=== PATIENT | male | born 1940 | race Caucasian/White ===

== ENCOUNTER 2017-12-10 21:54 | Inpatient (IN) ==
[2017-12-10] MEDS ORDERED: metroNIDAZOLE INJ 500 MG in PREMIX 1 EACH IV STA (22:17)
[2017-12-10] MEDS ORDERED: METOCLOPRAMIDE 10 MG/2 ML VIAL IV STA (22:17)
[2017-12-10] MEDS ORDERED: cefTRIAXone 1,000 MG in SODIUM CHLORIDE 0.9% 100 ML IV STA (22:17)
[2017-12-10] MEDS ORDERED: PANTOPRAZOLE 40 MG VIAL IV STA (22:17)
[2017-12-10] MEDS ORDERED: ONDANSETRON 4 MG/2 ML VIAL IV STA (22:17)
[2017-12-10 22:51] LABS: Basophils # 0.1 10*3/uL (0.0-0.2); Basophils % 0.3 % (0.0-0.8); Hematocrit 39.6 VOL% (42.0-52.0); Immature Granulocytes % 1.1 %; Immature Granulocytes Absolute 0.23 #; Lymphocytes # 0.3 10*3/uL (1.4-4.0); Lymphocytes % 1.7 % (21.2-54.2); Mean Corpuscular HGB Conc 32.8 GM/DL (32-36); Mean Corpuscular Hemoglobin 31 PG (27-34); Mean Corpuscular Volume 94.1 FL (87-102); Mean Platelet Volume 10.4 FL (9.6-12.0); Monocytes # 0.5 10*3/uL (0.11-0.8); Monocytes % 2.6 % (1.7-12.7); Neutrophils # 19.1 10*3/uL (1.4-7.4); Neutrophils % 94.3 % (38.7-73.9); Platelet Count 123 T/CUMM (130-400); Red Blood Count 4.21 MC/CUMM (3.8-5.5); Red Cell Distribution Width 13.7 % (9.3-17.3); White Blood Count 20.2 T/CUMM (4-12)
[2017-12-10 23:12] LABS: Alanine Aminotransferase 71 U/L (16-61); Albumin 2.4 G/DL (3.4-5.0); Alkaline Phosphatase 156 U/L (45-117); Amylase 17 U/L (25-115); Aspartate Amino Transferase 102 U/L (0-37); Blood Urea Nitrogen 47 MG/DL (7-18); Calcium 8.1 MG/DL (8.5-10.1); Glucose 133 MG/DL (74-106); Osmolality,Calculated 296.1 MOS/KG (273-304); Potassium 3.8 MMOL/L (3.5-5.1); Sodium 142 MMOL/L (136-145); Total Protein 6.1 G/DL (6.4-8.3)
[2017-12-10 23:15] LABS: Troponin I 0.488 NG/ML (0.00-0.045)
[2017-12-10 23:26] LABS: Lactic Acid 3.3 MMOL/L (0.4-2.0)
[2017-12-10] MEDS ORDERED: SODIUM CHLORIDE 0.9% 1,000 ML IV STA (23:29)
[2017-12-10 23:40] LABS: Apearance,Urine CLOUDY (Clear); Blood, Urine Small mg/dL (Negative); Glucose,Urine (UA) Negative (Negative); Granular Casts,Urine 7 /LPF (0-1); Hyaline Casts,Urine 7 /LPF (0-3); Ketones,Urine 5 mg/dL (Negative); Mucus,Urine Occasional /LPF (Occasional); Nitrite,Urine Negative (Negative); Protein,Urine >=500 MG/DL; RBC,Urine 10 /HPF (0-4); Squamous Epithelial Cell,Urine Occasional /HPF (0-10); Urine Color Amber (Yellow); Urine Specific Gravity 1.019 (1.001-1.035); WBC,Urine 8 /HPF (0-6)
[2017-12-10 23:41] LABS: Bilirubin,Urine Small mg/dL (Negative)
[2017-12-11] MEDS ORDERED: SODIUM CHLORIDE 0.9% 1,000 ML IV STA (00:42)
[2017-12-11 00:51] LABS: Band Neutrophils 18 % (0-10); Lymphocytes 3 % (20-55); Metamyelocytes 7 %; Myelocytes 2 %; Segmented Neutrophils 68 % (50-85); Total Cells Counted 100
[2017-12-11 01:16] LABS: Ovalocytes 1+; Platelet Estimate Normal
[2017-12-11] MEDS ORDERED: NOREPINEPHRINE 8 MG in SODIUM CHLORIDE 0.9% 242 ML IV PRN ×2 (04:07→04:53)
[2017-12-11] MEDS ORDERED: SODIUM CHLORIDE 0.9% 100 ML IV ONE (05:06)
[2017-12-11] MEDS ORDERED: MEROPENEM 1,000 MG VIAL IV ONE (05:06)
[2017-12-11] MEDS ORDERED: ENOXAPARIN 80 MG/0.8 ML SYRINGE SUBCUT ONE (05:06)
[2017-12-11] MEDS: ENOXAPARIN 30 MG/0.3 ML SYRINGE SUBCUT SCH (05:20)
[2017-12-11 05:30] LABS: Basophils # 0.1 10*3/uL (0.0-0.2); Basophils % 0.4 % (0.0-0.8); Hematocrit 37.3 VOL% (42.0-52.0); Hemoglobin 12.4 GM/DL (14.0-18.0); Immature Granulocytes % 0.9 %; Immature Granulocytes Absolute 0.18 #; Lymphocytes # 0.6 10*3/uL (1.4-4.0); Lymphocytes % 2.7 % (21.2-54.2); Mean Corpuscular HGB Conc 33.2 GM/DL (32-36); Mean Corpuscular Hemoglobin 32 PG (27-34); Mean Corpuscular Volume 94.7 FL (87-102); Mean Platelet Volume 10.7 FL (9.6-12.0); Monocytes # 0.8 10*3/uL (0.11-0.8); Monocytes % 3.6 % (1.7-12.7); Neutrophils # 19.5 10*3/uL (1.4-7.4); Neutrophils % 92.4 % (38.7-73.9); Platelet Count 109 T/CUMM (130-400); Red Blood Count 3.94 MC/CUMM (3.8-5.5); Red Cell Distribution Width 13.6 % (9.3-17.3); White Blood Count 21.1 T/CUMM (4-12)
[2017-12-11] MEDS: MEROPENEM 1,000 MG in SYRINGE 1 EACH IV SCH ×3 (05:45→20:24)
[2017-12-11] MEDS: SODIUM CHLORIDE 0.9% 1,000 ML IV SCH ×2 (05:45→16:53)
[2017-12-11 05:49] LABS: Band Neutrophils 12 % (0-10); Hypochromasia 1+; Lymphocytes 2 % (20-55); Metamyelocytes 3 %; Microcytosis 1+; Ovalocytes Slight; Segmented Neutrophils 75 % (50-85); Total Cells Counted 100
[2017-12-11 05:50] LABS: Platelet Estimate Adequate
[2017-12-11 06:00] LABS: Albumin 2.3 G/DL (3.4-5.0); Calcium 7.4 MG/DL (8.5-10.1); Osmolality,Calculated 296.1 MOS/KG (273-304); Potassium 4.2 MMOL/L (3.5-5.1); Total Protein 5.1 G/DL (6.4-8.3)
[2017-12-11 09:01] LABS: INR 1.2; PT Patient Result 12.2 SECS
[2017-12-11] MEDS ORDERED: fentaNYL 100 MCG/2 ML VIAL ONE (09:15)
[2017-12-11] MEDS ORDERED: MIDAZOLAM 2 MG/2 ML VIAL ONE (09:15)
[2017-12-11] MEDS ORDERED: ONDANSETRON 4 MG/2 ML VIAL ONE (09:16)
[2017-12-11] MEDS ORDERED: ONDANSETRON 4 MG/2 ML VIAL IV ONE (09:26)
[2017-12-11] MEDS ORDERED: fentaNYL 100 MCG/2 ML VIAL IV ONE (09:26)
[2017-12-11] MEDS: metroNIDAZOLE INJ 500 MG in PREMIX 1 EACH IV SCH ×3 (10:36→23:21)
[2017-12-11] MEDS: MORPHINE 4 MG/1 ML VIAL IV PRN ×2 (15:14→23:21)
[2017-12-12 04:28] LABS: Basophils % 0.2 % (0.0-0.8); Eosinophils % 0.2 % (0.00-10.9); Hematocrit 35.2 VOL% (42.0-52.0); Hemoglobin 11.6 GM/DL (14.0-18.0); Immature Granulocytes % 0.9 %; Lymphocytes # 0.5 10*3/uL (1.4-4.0); Lymphocytes % 4.3 % (21.2-54.2); Mean Corpuscular Hemoglobin 31 PG (27-34); Mean Corpuscular Volume 95.4 FL (87-102); Mean Platelet Volume 11.1 FL (9.6-12.0); Monocytes # 0.4 10*3/uL (0.11-0.8); Monocytes % 3.5 % (1.7-12.7); Neutrophils # 10.2 10*3/uL (1.4-7.4); Neutrophils % 90.9 % (38.7-73.9); Platelet Count 106 T/CUMM (130-400); Red Blood Count 3.69 MC/CUMM (3.8-5.5); Red Cell Distribution Width 13.8 % (9.3-17.3); White Blood Count 11.2 T/CUMM (4-12)
[2017-12-12 05:02] LABS: Bilirubin,Total 0.8 MG/DL (0.2-1.0); Calcium 7.9 MG/DL (8.5-10.1); Potassium 4.1 MMOL/L (3.5-5.1); Total Protein 5.4 G/DL (6.4-8.3)
[2017-12-12] MEDS: SODIUM CHLORIDE 0.9% 1,000 ML IV SCH ×2 (05:06→14:25)
[2017-12-12] MEDS: MEROPENEM 1,000 MG in SYRINGE 1 EACH IV SCH ×3 (05:14→21:22)
[2017-12-12] MEDS: ENOXAPARIN 30 MG/0.3 ML SYRINGE SUBCUT SCH (05:14)
[2017-12-12 05:30] LABS: Band Neutrophils 6 % (0-10); Lymphocytes 2 % (20-55); Segmented Neutrophils 85 % (50-85); Total Cells Counted 100
[2017-12-12 05:31] LABS: Burr Cells Few; Hypochromasia Slight; Microcytosis Slight
[2017-12-12 05:32] LABS: Ovalocytes Slight; Platelet Estimate Adequate
[2017-12-12] MEDS: metroNIDAZOLE INJ 500 MG in PREMIX 1 EACH IV SCH ×2 (08:39→17:35)
[2017-12-12] MEDS: MORPHINE 4 MG/1 ML VIAL IV PRN ×2 (09:01→21:35)
[2017-12-12] MEDS: ASPIRIN EC 325 MG TABLET PO SCH (13:41)
[2017-12-12] MEDS: ALLOPURINOL 300 MG TABLET PO SCH (13:42)
[2017-12-12] MEDS: PANTOPRAZOLE 40 MG TABLET PO SCH (21:23)
[2017-12-12] MEDS: ONDANSETRON 4 MG/2 ML VIAL IV PRN (21:36)
[2017-12-13] MEDS: metroNIDAZOLE INJ 500 MG in PREMIX 1 EACH IV SCH ×3 (00:43→16:19)
[2017-12-13] MEDS: SODIUM CHLORIDE 0.9% 1,000 ML IV SCH ×2 (00:45→16:05)
[2017-12-13 03:17] LABS: Basophils % 0.3 % (0.0-0.8); Eosinophils # 0.4 10*3/uL (0.0-0.87); Eosinophils % 3.2 % (0.00-10.9); Hematocrit 36.9 VOL% (42.0-52.0); Hemoglobin 11.9 GM/DL (14.0-18.0); Immature Granulocytes % 0.5 %; Immature Granulocytes Absolute 0.05 #; Lymphocytes # 0.6 10*3/uL (1.4-4.0); Lymphocytes % 5.3 % (21.2-54.2); Mean Corpuscular HGB Conc 32.2 GM/DL (32-36); Mean Corpuscular Hemoglobin 31 PG (27-34); Mean Corpuscular Volume 95.3 FL (87-102); Monocytes # 0.4 10*3/uL (0.11-0.8); Monocytes % 3.9 % (1.7-12.7); Neutrophils # 9.4 10*3/uL (1.4-7.4); Neutrophils % 86.8 % (38.7-73.9); Platelet Count 115 T/CUMM (130-400); Red Blood Count 3.87 MC/CUMM (3.8-5.5); Red Cell Distribution Width 13.9 % (9.3-17.3); White Blood Count 10.8 T/CUMM (4-12)
[2017-12-13 03:58] LABS: Bilirubin,Total 0.9 MG/DL (0.2-1.0); Calcium 8.5 MG/DL (8.5-10.1); Osmolality,Calculated 308.8 MOS/KG (273-304); Potassium 3.9 MMOL/L (3.5-5.1); Total Protein 5.6 G/DL (6.4-8.3)
[2017-12-13 05:36] LABS: Band Neutrophils 5 % (0-10); Eosinophils 2 % (0-10); Lymphocytes 2 % (20-55); Segmented Neutrophils 88 % (50-85); Total Cells Counted 100
[2017-12-13 05:37] LABS: Burr Cells Slight; Microcytosis Slight
[2017-12-13 05:38] LABS: Platelet Estimate Adequate
[2017-12-13] MEDS: MEROPENEM 1,000 MG in SYRINGE 1 EACH IV SCH ×2 (06:23→16:06)
[2017-12-13] MEDS: ENOXAPARIN 30 MG/0.3 ML SYRINGE SUBCUT SCH (06:23)
[2017-12-13] MEDS: PANTOPRAZOLE 40 MG TABLET PO SCH ×2 (09:18→21:05)
[2017-12-13] MEDS: ASPIRIN EC 325 MG TABLET PO SCH (09:18)
[2017-12-13] MEDS: ALLOPURINOL 300 MG TABLET PO SCH (09:18)
[2017-12-13] MEDS ORDERED: ALBUTEROL/IPRATROPIUM 3 ML NEB RESP TX PRN (14:25)
[2017-12-13] MEDS ORDERED: ALBUTEROL/IPRATROPIUM 3 ML NEB RESP TX ONE (14:25)
[2017-12-13] MEDS ORDERED: FUROSEMIDE 40 MG/4 ML VIAL IV ONE (15:00)
[2017-12-13] MEDS ORDERED: AZTREONAM 1,000 MG in SODIUM CHLORIDE 0.9% 100 ML IV SCH (15:00)
[2017-12-13] MEDS ORDERED: LEVOFLOXACIN 750 MG TABLET PO ONE (15:30)
[2017-12-13] MEDS ORDERED: AZTREONAM 2,000 MG in SYRINGE 1 EACH IV ONE (16:00)
[2017-12-13] MEDS: AZTREONAM 1,000 MG in SYRINGE 1 EACH IV SCH (23:22)
[2017-12-14] MEDS: metroNIDAZOLE INJ 500 MG in PREMIX 1 EACH IV SCH ×3 (00:32→16:59)
[2017-12-14] MEDS: ENOXAPARIN 30 MG/0.3 ML SYRINGE SUBCUT SCH (05:55)
[2017-12-14 06:38] LABS: Basophils % 0.5 % (0.0-0.8); Eosinophils # 0.5 10*3/uL (0.0-0.87); Eosinophils % 6.6 % (0.00-10.9); Hemoglobin 12.5 GM/DL (14.0-18.0); Immature Granulocytes % 1.8 %; Immature Granulocytes Absolute 0.14 #; Lymphocytes # 0.7 10*3/uL (1.4-4.0); Lymphocytes % 8.2 % (21.2-54.2); Mean Corpuscular HGB Conc 32.9 GM/DL (32-36); Mean Corpuscular Hemoglobin 31 PG (27-34); Mean Corpuscular Volume 92.9 FL (87-102); Mean Platelet Volume 10.3 FL (9.6-12.0); Monocytes # 0.5 10*3/uL (0.11-0.8); Monocytes % 6.7 % (1.7-12.7); Neutrophils % 76.2 % (38.7-73.9); Platelet Count 104 T/CUMM (130-400); Red Blood Count 4.09 MC/CUMM (3.8-5.5); Red Cell Distribution Width 13.9 % (9.3-17.3); White Blood Count 7.9 T/CUMM (4-12)
[2017-12-14 06:58] LABS: Calcium 8.4 MG/DL (8.5-10.1); Osmolality,Calculated 311.7 MOS/KG (273-304); Potassium 3.9 MMOL/L (3.5-5.1)
[2017-12-14] MEDS: SODIUM CHLORIDE 0.9% 1,000 ML IV SCH (09:41)
[2017-12-14] MEDS: ALLOPURINOL 300 MG TABLET PO SCH (09:42)
[2017-12-14] MEDS: AZTREONAM 1,000 MG in SYRINGE 1 EACH IV SCH ×2 (09:42→16:58)
[2017-12-14] MEDS: PANTOPRAZOLE 40 MG TABLET PO SCH ×2 (09:42→21:08)
[2017-12-14] MEDS: ASPIRIN EC 325 MG TABLET PO SCH (09:43)
[2017-12-14] MEDS ORDERED: TUBERCULIN SKIN TEST 0.1 ML SYRINGE INTRADERM ONE (15:21)
[2017-12-14] MEDS: MORPHINE 4 MG/1 ML VIAL IV PRN ×2 (17:29→22:02)
[2017-12-14] MEDS: ONDANSETRON 4 MG/2 ML VIAL IV PRN (22:03)
[2017-12-15] MEDS: AZTREONAM 1,000 MG in SYRINGE 1 EACH IV SCH ×3 (01:21→16:22)
[2017-12-15] MEDS: metroNIDAZOLE INJ 500 MG in PREMIX 1 EACH IV SCH ×3 (01:22→16:41)
[2017-12-15 05:31] LABS: Basophils % 0.3 % (0.0-0.8); Eosinophils # 0.3 10*3/uL (0.0-0.87); Eosinophils % 4.1 % (0.00-10.9); Hematocrit 38.5 VOL% (42.0-52.0); Hemoglobin 12.8 GM/DL (14.0-18.0); Immature Granulocytes % 1.9 %; Immature Granulocytes Absolute 0.13 #; Lymphocytes % 13.7 % (21.2-54.2); Mean Corpuscular HGB Conc 33.2 GM/DL (32-36); Mean Corpuscular Hemoglobin 31 PG (27-34); Mean Corpuscular Volume 92.1 FL (87-102); Mean Platelet Volume 10.6 FL (9.6-12.0); Monocytes # 0.6 10*3/uL (0.11-0.8); Monocytes % 9.1 % (1.7-12.7); Neutrophils % 70.9 % (38.7-73.9); Platelet Count 140 T/CUMM (130-400); Red Blood Count 4.18 MC/CUMM (3.8-5.5); Red Cell Distribution Width 14.1 % (9.3-17.3)
[2017-12-15 05:35] LABS: Calcium 8.2 MG/DL (8.5-10.1); Osmolality,Calculated 315.4 MOS/KG (273-304); Potassium 3.8 MMOL/L (3.5-5.1)
[2017-12-15] MEDS: ENOXAPARIN 30 MG/0.3 ML SYRINGE SUBCUT SCH (07:51)
[2017-12-15] MEDS: SODIUM CHLORIDE 0.9% 1,000 ML IV SCH (09:19)
[2017-12-15] MEDS: ASPIRIN EC 325 MG TABLET PO SCH (09:21)
[2017-12-15] MEDS: ALLOPURINOL 300 MG TABLET PO SCH (09:21)
[2017-12-15] MEDS: PANTOPRAZOLE 40 MG TABLET PO SCH ×2 (09:21→21:33)
[2017-12-15] MEDS ORDERED: BISACODYL 10 MG SUPP RECTAL ONE (10:47)
[2017-12-15] MEDS: DEXTROSE 5% NACL 0.45% 1,000 ML IV SCH (14:34)
[2017-12-15] MEDS: LEVOFLOXACIN 500 MG TABLET PO SCH (16:21)
[2017-12-15] MEDS: MAGNESIUM HYDROXIDE SUSP 30 ML UDCUP PO PRN (21:32)
[2017-12-16] MEDS: DEXTROSE 5% NACL 0.45% 1,000 ML IV SCH ×2 (00:49→19:38)
[2017-12-16] MEDS: AZTREONAM 1,000 MG in SYRINGE 1 EACH IV SCH ×3 (01:11→17:41)
[2017-12-16] MEDS: metroNIDAZOLE INJ 500 MG in PREMIX 1 EACH IV SCH ×3 (01:15→17:41)
[2017-12-16] MEDS: MAGNESIUM HYDROXIDE SUSP 30 ML UDCUP PO PRN ×2 (06:28→10:47)
[2017-12-16 06:40] LABS: Calcium 8.2 MG/DL (8.5-10.1); Osmolality,Calculated 311.6 MOS/KG (273-304); Potassium 3.8 MMOL/L (3.5-5.1)
[2017-12-16] MEDS: ENOXAPARIN 30 MG/0.3 ML SYRINGE SUBCUT SCH (10:44)
[2017-12-16] MEDS: ALLOPURINOL 300 MG TABLET PO SCH (10:45)
[2017-12-16] MEDS: ASPIRIN EC 325 MG TABLET PO SCH (10:45)
[2017-12-16] MEDS: PANTOPRAZOLE 40 MG TABLET PO SCH ×2 (10:45→22:22)
[2017-12-16] MEDS: ALBUTEROL/IPRATROPIUM 3 ML NEB RESP TX SCH ×2 (14:11→19:59)
[2017-12-17] MEDS: metroNIDAZOLE INJ 500 MG in PREMIX 1 EACH IV SCH ×3 (03:15→15:59)
[2017-12-17] MEDS: AZTREONAM 1,000 MG in SYRINGE 1 EACH IV SCH ×3 (03:16→16:01)
[2017-12-17 06:22] LABS: Basophils % 0.4 % (0.0-0.8); Eosinophils # 0.3 10*3/uL (0.0-0.87); Eosinophils % 4.1 % (0.00-10.9); Hematocrit 37.6 VOL% (42.0-52.0); Hemoglobin 12.5 GM/DL (14.0-18.0); Immature Granulocytes % 1.3 %; Immature Granulocytes Absolute 0.11 #; Lymphocytes # 0.9 10*3/uL (1.4-4.0); Lymphocytes % 11.3 % (21.2-54.2); Mean Corpuscular HGB Conc 33.2 GM/DL (32-36); Mean Corpuscular Hemoglobin 31 PG (27-34); Mean Corpuscular Volume 91.9 FL (87-102); Mean Platelet Volume 10.2 FL (9.6-12.0); Monocytes # 0.5 10*3/uL (0.11-0.8); Monocytes % 6.2 % (1.7-12.7); Neutrophils # 6.3 10*3/uL (1.4-7.4); Neutrophils % 76.7 % (38.7-73.9); Platelet Count 213 T/CUMM (130-400); Red Blood Count 4.09 MC/CUMM (3.8-5.5); Red Cell Distribution Width 13.4 % (9.3-17.3); White Blood Count 8.3 T/CUMM (4-12)
[2017-12-17 06:28] LABS: Calcium 8.1 MG/DL (8.5-10.1); Calcium 8.6 MG/DL (8.5-10.1); Osmolality,Calculated 304.6 MOS/KG (273-304); Osmolality,Calculated 305.6 MOS/KG (273-304); Potassium 3.9 MMOL/L (3.5-5.1)
[2017-12-17] MEDS: ALBUTEROL/IPRATROPIUM 3 ML NEB RESP TX SCH ×3 (07:40→19:30)
[2017-12-17] MEDS: ENOXAPARIN 30 MG/0.3 ML SYRINGE SUBCUT SCH (09:18)
[2017-12-17] MEDS: PANTOPRAZOLE 40 MG TABLET PO SCH ×2 (09:18→21:07)
[2017-12-17] MEDS: ASPIRIN EC 325 MG TABLET PO SCH (09:18)
[2017-12-17] MEDS: ALLOPURINOL 300 MG TABLET PO SCH (09:18)
[2017-12-17 09:21] LABS: Folate 13.2 NG/ML (5.4-24.0)
[2017-12-17] MEDS: LEVOFLOXACIN 500 MG TABLET PO SCH (16:01)
[2017-12-17] MEDS: DEXTROSE 5% NACL 0.45% 1,000 ML IV SCH ×2 (17:33→18:03)
[2017-12-18] MEDS: metroNIDAZOLE INJ 500 MG in PREMIX 1 EACH IV SCH ×2 (01:53→08:41)
[2017-12-18] MEDS: AZTREONAM 1,000 MG in SYRINGE 1 EACH IV SCH ×2 (01:53→08:41)
[2017-12-18 06:27] LABS: Calcium 8.3 MG/DL (8.5-10.1); Osmolality,Calculated 300.6 MOS/KG (273-304); Potassium 3.7 MMOL/L (3.5-5.1)
[2017-12-18] MEDS: ALBUTEROL/IPRATROPIUM 3 ML NEB RESP TX SCH ×2 (07:30→14:52)
[2017-12-18] MEDS: ENOXAPARIN 30 MG/0.3 ML SYRINGE SUBCUT SCH ×2 (08:40→09:31)
[2017-12-18] MEDS: PANTOPRAZOLE 40 MG TABLET PO SCH (08:41)
[2017-12-18] MEDS: ALLOPURINOL 300 MG TABLET PO SCH (08:41)
[2017-12-18] MEDS: ASPIRIN EC 325 MG TABLET PO SCH (08:42)
[2017-12-18] MEDS: DEXTROSE 5% NACL 0.45% 1,000 ML IV SCH (08:44)
[2017-12-18 13:12] VITALS: BP 134/74
== END 2017-12-18 15:00 | disposition home health service (06) | DRG 871 ==
LOC: EDBD → EDUNIT# → N.ED 21:54 → N.EDINP 12-11 04:44 → SUATTDRO 12-11 04:45 → N.CC 12-11 11:05 → N.5E 12-13 17:47
PROVIDERS: ADMIT Internal Medicine; ATTEND Internal Medicine

== ENCOUNTER 2018-04-15 10:26 | Inpatient (IN) ==
[2018-04-15 11:04] LABS: Basophils % 0.6 % (0.0-0.8); Eosinophils # 0.2 10*3/uL (0.0-0.87); Eosinophils % 3.4 % (0.00-10.9); Hematocrit 36.8 VOL% (42.0-52.0); Hemoglobin 12.1 GM/DL (14.0-18.0); Immature Granulocytes % 0.3 %; Immature Granulocytes Absolute 0.02 #; Lymphocytes # 1.1 10*3/uL (1.4-4.0); Lymphocytes % 16.5 % (21.2-54.2); Mean Corpuscular HGB Conc 32.9 GM/DL (32-36); Mean Corpuscular Hemoglobin 31 PG (27-34); Mean Corpuscular Volume 93.6 FL (87-102); Monocytes # 0.4 10*3/uL (0.11-0.8); Neutrophils % 73.2 % (38.7-73.9); Platelet Count 201 T/CUMM (130-400); Red Blood Count 3.93 MC/CUMM (3.8-5.5); Red Cell Distribution Width 13.6 % (9.3-17.3); White Blood Count 6.8 T/CUMM (4-12)
[2018-04-15 11:11] LABS: PT Patient Result 10.6 SECS
[2018-04-15 11:24] LABS: Albumin 3.2 G/DL (3.4-5.0); Bilirubin,Total 0.4 MG/DL (0.2-1.0); Calcium 8.5 MG/DL (8.5-10.1); Osmolality,Calculated 287.1 MOS/KG (273-304); Potassium 4.7 MMOL/L (3.5-5.1); Total Protein 6.1 G/DL (6.4-8.3)
[2018-04-15] MEDS ORDERED: ONDANSETRON 4 MG/2 ML VIAL IV PRN (13:47)
[2018-04-15] MEDS ORDERED: SODIUM CHLORIDE 0.9% 1,000 ML IV PRN (13:50)
[2018-04-15] MEDS: SODIUM CHLORIDE 0.9% 1,000 ML IV SCH ×2 (16:10→23:39)
[2018-04-15 18:33] LABS: Hematocrit 31.2 VOL% (42.0-52.0)
[2018-04-15] MEDS: PANTOPRAZOLE 40 MG VIAL IV SCH (21:15)
[2018-04-15] MEDS: TAMSULOSIN 0.4 MG CAPSULE PO SCH (21:18)
[2018-04-15] MEDS: SIMVASTATIN 20 MG TABLET PO SCH (21:18)
[2018-04-16 01:20] LABS: Hematocrit 27.1 VOL% (42.0-52.0); Hemoglobin 8.8 GM/DL (14.0-18.0)
[2018-04-16 01:22] LABS: Basophils % 0.4 % (0.0-0.8); Eosinophils # 0.1 10*3/uL (0.0-0.87); Eosinophils % 1.6 % (0.00-10.9); Hematocrit 27.4 VOL% (42.0-52.0); Hemoglobin 8.7 GM/DL (14.0-18.0); Immature Granulocytes % 0.3 %; Immature Granulocytes Absolute 0.02 #; Lymphocytes # 1.4 10*3/uL (1.4-4.0); Lymphocytes % 21.5 % (21.2-54.2); Mean Corpuscular HGB Conc 31.8 GM/DL (32-36); Mean Corpuscular Hemoglobin 30 PG (27-34); Mean Corpuscular Volume 94.8 FL (87-102); Mean Platelet Volume 9.8 FL (9.6-12.0); Monocytes # 0.4 10*3/uL (0.11-0.8); Monocytes % 6.4 % (1.7-12.7); Neutrophils # 4.7 10*3/uL (1.4-7.4); Neutrophils % 69.8 % (38.7-73.9); Platelet Count 178 T/CUMM (130-400); Red Blood Count 2.89 MC/CUMM (3.8-5.5); Red Cell Distribution Width 13.5 % (9.3-17.3); White Blood Count 6.7 T/CUMM (4-12)
[2018-04-16 01:40] LABS: Calcium 8.3 MG/DL (8.5-10.1); Osmolality,Calculated 293.8 MOS/KG (273-304); Potassium 4.5 MMOL/L (3.5-5.1)
[2018-04-16 05:35] LABS: Hematocrit 28.5 VOL% (42.0-52.0); Hemoglobin 9.2 GM/DL (14.0-18.0)
[2018-04-16] MEDS: PANTOPRAZOLE 40 MG VIAL IV SCH ×2 (09:46→20:51)
[2018-04-16] MEDS: amLODIPine 10 MG TABLET PO SCH (09:46)
[2018-04-16] MEDS: SODIUM CHLORIDE 0.9% 1,000 ML IV SCH ×2 (09:46→20:53)
[2018-04-16] MEDS: ALLOPURINOL 300 MG TABLET PO SCH (09:46)
[2018-04-16 12:07] LABS: Hematocrit 27.2 VOL% (42.0-52.0); Hemoglobin 8.8 GM/DL (14.0-18.0)
[2018-04-16] MEDS ORDERED: COLCHICINE 0.6 MG TABLET PO PRN (16:14)
[2018-04-16 17:26] LABS: Hematocrit 25.8 VOL% (42.0-52.0); Hemoglobin 8.2 GM/DL (14.0-18.0)
[2018-04-16] MEDS: TAMSULOSIN 0.4 MG CAPSULE PO SCH (20:51)
[2018-04-16] MEDS: SIMVASTATIN 20 MG TABLET PO SCH (20:51)
[2018-04-16 23:45] LABS: Hematocrit 24.4 VOL% (42.0-52.0); Hemoglobin 7.8 GM/DL (14.0-18.0)
[2018-04-17] MEDS: SODIUM CHLORIDE 0.9% 1,000 ML IV SCH (02:02)
[2018-04-17 05:07] LABS: Hematocrit 24.5 VOL% (42.0-52.0); Hemoglobin 7.8 GM/DL (14.0-18.0)
[2018-04-17] MEDS: ALLOPURINOL 300 MG TABLET PO SCH (08:40)
[2018-04-17] MEDS: PANTOPRAZOLE 40 MG VIAL IV SCH (08:40)
[2018-04-17] MEDS: amLODIPine 10 MG TABLET PO SCH (08:40)
[2018-04-17 15:59] VITALS: BP 128/67
[2018-04-17 16:13] LABS: Hematocrit 31.3 VOL% (42.0-52.0)
[2018-04-17 16:14] LABS: Hemoglobin 10.2 GM/DL (14.0-18.0)
== END 2018-04-17 15:55 | disposition home or self-care (01) | DRG 378 ==
LOC: N.ED 10:26 → N.EDINP 13:47 → SUATTDRO 13:47 → N.4E 14:49 → N.2W 04-17 17:08
PROVIDERS: ADMIT Emergency Medicine; ATTEND Hospitalist

== ENCOUNTER 2018-12-11 07:34 | Inpatient (IN) ==
[2018-12-11 08:50] LABS: Basophils # 0.1 10*3/uL (0.0-0.2); Basophils % 0.7 % (0.0-0.8); Eosinophils # 0.1 10*3/uL (0.0-0.87); Eosinophils % 1.9 % (0.00-10.9); Hematocrit 40.6 VOL% (42.0-52.0); Immature Granulocytes % 0.3 %; Immature Granulocytes Absolute 0.02 #; Lymphocytes # 1.2 10*3/uL (1.4-4.0); Monocytes % 6.4 % (1.7-12.7); Neutrophils % 73.7 % (38.7-73.9); Platelet Count 219 T/CUMM (130-400); Red Blood Count 4.46 MC/CUMM (3.8-5.5); White Blood Count 7.2 T/CUMM (4-12)
[2018-12-11 08:57] LABS: INR 0.9; PT Patient Result 10.1 SECS (9.6-12.2)
[2018-12-11 09:05] LABS: Albumin 3.4 G/DL (3.4-5.0); Bilirubin,Total 0.7 MG/DL (0.2-1.0); Calcium 8.9 MG/DL (8.5-10.1); Osmolality,Calculated 293.7 MOS/KG (273-304); Total Protein 6.9 G/DL (6.4-8.3)
[2018-12-11] MEDS ORDERED: ONDANSETRON 4 MG/2 ML VIAL IV PRN (09:52)
[2018-12-11] MEDS ORDERED: tiZANidine 4 MG TABLET PO PRN (10:14)
[2018-12-11] MEDS ORDERED: PANTOPRAZOLE 40 MG VIAL IV ONE (11:01)
[2018-12-11] MEDS: SODIUM CHLORIDE 0.9% 1,000 ML IV SCH ×2 (11:54→20:51)
[2018-12-11] MEDS: amLODIPine 10 MG TABLET PO SCH (11:55)
[2018-12-11 18:22] LABS: Hematocrit 30.4 VOL% (42.0-52.0); Hemoglobin 9.6 GM/DL (14.0-18.0)
[2018-12-11] MEDS: TAMSULOSIN 0.4 MG CAPSULE PO SCH (20:51)
[2018-12-11] MEDS: MONTELUKAST 10 MG TABLET PO SCH (20:51)
[2018-12-11] MEDS: POLYETHYLENE GLYCOL POWDER 17 GM PACK PO SCH (20:51)
[2018-12-11] MEDS ORDERED: PANTOPRAZOLE 40 MG VIAL IV SCH (21:00)
[2018-12-12 02:10] LABS: Basophils % 0.3 % (0.0-0.8); Eosinophils # 0.1 10*3/uL (0.0-0.87); Eosinophils % 2.4 % (0.00-10.9); Hematocrit 26.4 VOL% (42.0-52.0); Hemoglobin 8.4 GM/DL (14.0-18.0); Immature Granulocytes % 0.3 %; Immature Granulocytes Absolute 0.02 #; Lymphocytes # 1.5 10*3/uL (1.4-4.0); Lymphocytes % 25.2 % (21.2-54.2); Mean Corpuscular HGB Conc 31.8 GM/DL (32-36); Mean Corpuscular Volume 92.3 FL (87-102); Mean Platelet Volume 9.7 FL (9.6-12.0); Monocytes % 7.5 % (1.7-12.7); Neutrophils % 64.3 % (38.7-73.9); Platelet Count 157 T/CUMM (130-400); Red Blood Count 2.86 MC/CUMM (3.8-5.5); Red Cell Distribution Width 13.8 % (9.3-17.3); White Blood Count 5.8 T/CUMM (4-12)
[2018-12-12 03:02] LABS: Albumin 2.4 G/DL (3.4-5.0); Bilirubin,Total 0.4 MG/DL (0.2-1.0); Calcium 7.8 MG/DL (8.5-10.1); Osmolality,Calculated 299.3 MOS/KG (273-304); Total Protein 4.9 G/DL (6.4-8.3)
[2018-12-12 03:03] LABS: Thyroid Stimulating Hormone 2.15 uIU/ml (0.358-3.74)
[2018-12-12 03:26] LABS: Risk Ratio 2.93; VLDL CHOLESTEROL 30.8 MG/DL
[2018-12-12] MEDS: SODIUM CHLORIDE 0.9% 1,000 ML IV SCH ×3 (05:32→21:55)
[2018-12-12] MEDS ORDERED: SODIUM CHLORIDE 0.9% 1,000 ML IV PRN ×2 (08:03→19:49)
[2018-12-12] MEDS: ALLOPURINOL 300 MG TABLET PO SCH (08:41)
[2018-12-12] MEDS: NIACIN 500 MG TABLET PO SCH (08:41)
[2018-12-12] MEDS: amLODIPine 10 MG TABLET PO SCH (08:41)
[2018-12-12] MEDS: PANTOPRAZOLE 40 MG TABLET PO SCH ×2 (08:42→20:26)
[2018-12-12] MEDS: POLYETHYLENE GLYCOL POWDER 17 GM PACK PO SCH ×3 (08:43→20:26)
[2018-12-12] MEDS ORDERED: ACETAMINOPHEN 500 MG TABLET PO PRN (10:36)
[2018-12-12] MEDS: SIMETHICONE CHEW 80 MG TABLET PO SCH ×2 (14:57→20:26)
[2018-12-12] MEDS: TAMSULOSIN 0.4 MG CAPSULE PO SCH (20:26)
[2018-12-12] MEDS: MONTELUKAST 10 MG TABLET PO SCH (20:26)
[2018-12-13 04:52] LABS: Basophils % 0.6 % (0.0-0.8); Eosinophils # 0.3 10*3/uL (0.0-0.87); Hematocrit 23.3 VOL% (42.0-52.0); Hemoglobin 7.4 GM/DL (14.0-18.0); Immature Granulocytes % 0.4 %; Immature Granulocytes Absolute 0.02 #; Lymphocytes # 1.3 10*3/uL (1.4-4.0); Mean Corpuscular HGB Conc 31.8 GM/DL (32-36); Mean Corpuscular Volume 93.6 FL (87-102); Monocytes % 7.3 % (1.7-12.7); Neutrophils % 61.7 % (38.7-73.9); Platelet Count 143 T/CUMM (130-400); Red Blood Count 2.49 MC/CUMM (3.8-5.5); Red Cell Distribution Width 14.1 % (9.3-17.3); White Blood Count 5.2 T/CUMM (4-12)
[2018-12-13 05:19] LABS: Alanine Aminotransferase 12 U/L (16-61); Albumin 2.4 G/DL (3.4-5.0); Alkaline Phosphatase 58 U/L (45-117); Aspartate Amino Transferase 14 U/L (0-37); Bilirubin,Total < 0.39 MG/DL (0.2-1.0); Blood Urea Nitrogen 17 MG/DL (7-18); Glucose 101 MG/DL (74-106); Osmolality,Calculated 293.4 MOS/KG (273-304); Total Protein 4.8 G/DL (6.4-8.3)
[2018-12-13] MEDS: amLODIPine 10 MG TABLET PO SCH (10:31)
[2018-12-13] MEDS: ALLOPURINOL 300 MG TABLET PO SCH (10:31)
[2018-12-13] MEDS: POLYETHYLENE GLYCOL POWDER 17 GM PACK PO SCH ×3 (10:32→21:28)
[2018-12-13] MEDS: PANTOPRAZOLE 40 MG TABLET PO SCH ×2 (10:32→21:28)
[2018-12-13] MEDS: NIACIN 500 MG TABLET PO SCH (10:32)
[2018-12-13] MEDS: SIMETHICONE CHEW 80 MG TABLET PO SCH ×3 (10:32→21:27)
[2018-12-13 13:57] LABS: Hematocrit 27.4 VOL% (42.0-52.0); Hemoglobin 8.8 GM/DL (14.0-18.0)
[2018-12-13 17:13] LABS: Hematocrit 29.9 VOL% (42.0-52.0); Hemoglobin 9.6 GM/DL (14.0-18.0)
[2018-12-13] MEDS: TAMSULOSIN 0.4 MG CAPSULE PO SCH (21:27)
[2018-12-13] MEDS: MONTELUKAST 10 MG TABLET PO SCH (21:29)
[2018-12-13] MEDS: SODIUM CHLORIDE 0.9% 1,000 ML IV SCH (21:33)
[2018-12-14 05:00] LABS: Basophils % 0.5 % (0.0-0.8); Eosinophils # 0.3 10*3/uL (0.0-0.87); Eosinophils % 5.1 % (0.00-10.9); Hematocrit 28.3 VOL% (42.0-52.0); Hemoglobin 9.1 GM/DL (14.0-18.0); Immature Granulocytes % 0.4 %; Immature Granulocytes Absolute 0.02 #; Lymphocytes # 1.3 10*3/uL (1.4-4.0); Mean Corpuscular HGB Conc 32.2 GM/DL (32-36); Mean Corpuscular Volume 91.9 FL (87-102); Mean Platelet Volume 9.6 FL (9.6-12.0); Monocytes % 8.1 % (1.7-12.7); Neutrophils % 63.9 % (38.7-73.9); Platelet Count 142 T/CUMM (130-400); Red Blood Count 3.08 MC/CUMM (3.8-5.5); Red Cell Distribution Width 14.3 % (9.3-17.3); White Blood Count 5.7 T/CUMM (4-12)
[2018-12-14] MEDS: SODIUM CHLORIDE 0.9% 1,000 ML IV SCH ×2 (05:19→14:43)
[2018-12-14 05:24] LABS: Alanine Aminotransferase 14 U/L (16-61); Albumin 2.7 G/DL (3.4-5.0); Alkaline Phosphatase 62 U/L (45-117); Aspartate Amino Transferase 14 U/L (0-37); Bilirubin,Total < 0.39 MG/DL (0.2-1.0); Blood Urea Nitrogen 16 MG/DL (7-18); Calcium 8.4 MG/DL (8.5-10.1); Glucose 119 MG/DL (74-106); Osmolality,Calculated 289.7 MOS/KG (273-304); Total Protein 5.4 G/DL (6.4-8.3)
[2018-12-14] MEDS: ALLOPURINOL 300 MG TABLET PO SCH (09:12)
[2018-12-14] MEDS: POLYETHYLENE GLYCOL POWDER 17 GM PACK PO SCH (09:12)
[2018-12-14] MEDS: PANTOPRAZOLE 40 MG TABLET PO SCH (09:12)
[2018-12-14] MEDS: SIMETHICONE CHEW 80 MG TABLET PO SCH (09:12)
[2018-12-14] MEDS: amLODIPine 10 MG TABLET PO SCH (09:12)
[2018-12-14] MEDS: NIACIN 500 MG TABLET PO SCH (09:14)
[2018-12-14 12:18] VITALS: BP 162/67
== END 2018-12-14 13:27 | disposition home or self-care (01) | DRG 378 ==
LOC: N.ED 07:34 → N.EDINP 09:52 → N.2E 12:50
PROVIDERS: ADMIT Hospitalist; ATTEND Hospitalist